=== PATIENT | male | born 1980 | race Caucasian/White ===

== ENCOUNTER 2019-08-12 18:36 | Emergency (ER) | payer OTHER ==
[~2019-08-12] VITALS: Ht 165.1 cm; Wt 85.5 kg
[2019-08-12] MEDS ORDERED: AMPICILLIN SOD/SULBACTAM SOD 3 GM in D5W MINI-BAG PLUS 100 ML IV ONE (19:15)
[2019-08-12] MEDS ORDERED: NS 1,000 ML IV ONE (19:15)
[2019-08-12 19:45] LABS: BASO % 0.1 % (0.0-1.0); EOS # 0.1 10^3/uL (0.0-0.5); EOS % 0.6 % (0.0-3.0); HEMATOCRIT 46.5 % (42.0-52.0); HEMOGLOBIN 15.8 g/dl (13.5-17.5); LYMPH % 12.3 % (24.0-44.0); MEAN CORPUSCULAR HEMOGLOBIN 30.7 pg (27.0-33.0); MEAN CORPUSCULAR VOLUME 90.5 fl (80.0-96.0); MONO # 1.2 10^3/uL (0.0-0.8); MONO % 7.7 % (0.0-5.0); NEUTROPHILS # 12.5 10^3/uL (1.5-8.5); NEUTROPHILS % 78.9 % (36.0-66.0); PLATELET COUNT, AUTOMATED 269 10^3/uL (150-450); RED BLOOD COUNT 5.14 10^6/uL (4.30-6.10); WHITE BLOOD COUNT 15.8 10^3/uL (4.0-10.0)
[2019-08-12] MEDS ORDERED: ISOVUE-370 76% 100ML VIAL As Ordered ONE (19:57)
--- NOTE | 2019-08-12 20:38 | REPVR ---
PROCEDURE INFORMATION: Exam: CT Neck With Contrast Exam date and time: 08/12/2019 8:21 PM Age: 38 years old Clinical indication: Other: Right lower dental abscess with neck extension TECHNIQUE: Imaging protocol: Computed tomography images of the neck with intravenous contrast. Radiation optimization: All CT scans at this facility use at least one of these dose optimization techniques: automated exposure control; mA and/or kV adjustment per patient size (includes targeted exams where dose is matched to clinical indication); or iterative reconstruction. Contrast material: ISOVUE 370; Contrast volume: 75 ml; Contrast route: INTRAVENOUS (IV); COMPARISON: No relevant prior studies available. FINDINGS: Sinuses: Mild paranasal sinus disease. Nasopharynx: Unremarkable. Dental: There is periapical lucency involving the right mandibular premolar teeth and 1st molar tooth. Oropharynx: Unremarkable. No significant tonsillar enlargement. Hypopharynx: Unremarkable. Larynx: Unremarkable. Normal epiglottis. Retropharyngeal space: Unremarkable. Submandibular/Parotid glands: Normal. Glands are normal in size. Thyroid: Normal. No enlarged or calcified nodules. Lymph nodes: Unremarkable. No lymphadenopathy. Trachea: Visualized trachea is unremarkable. Lungs: Unremarkable as visualized. Bones/joints: Unremarkable. No acute fracture. Soft tissues: There are right facial soft tissue inflammatory changes extending along the right anterolateral neck. Hypodensity along the buccal cortex of the right mandibular body measures 1 cm by 0.4 centimetres by 0.5 centimetres. IMPRESSION: 1. Inflammatory changes involving the right facial and anterolateral neck soft tissues compatible with cellulitis. 2. Abscess along the buccal cortex of the right mandibular body measures up to 1 cm. 3. Periapical lucency involving the right mandibular premolar teeth and 1st molar tooth representing source of infection. Electronically signed by: Tony Vazquez On 08/12/2019 20:37:57 PM
[2019-08-12] MEDS ORDERED: dexameTHASONE 20MG/5ML VIAL (J1100 PER 1MG) IV ONE (21:00)
[2019-08-12] MEDS ORDERED: AUGMENTIN 875 MG TAB PO ONE (21:00)
[2019-08-12] MEDS ORDERED: AUGM875T28 PO (21:01)
[2019-08-12 21:15] VITALS: BP 137/82
== END 2019-08-12 21:17 | disposition home or self-care (01) ==
LOC: M ED 18:36
DX: K04.7 Periapical abscess without sinus (principal); K02.9 Dental caries, unspecified; L03.211 Cellulitis of face; F17.218 Nicotine dependence, cigarettes, with other nicotine-induced disorders
CPT/HCPCS: 70491; 80047; 85025; 86140; 87040; 96361; 96365; 96375; 99283; J1100; Q9967

== ENCOUNTER 2020-08-18 23:45 | Emergency (ER) | payer OTHER ==
[~2020-08-18] VITALS: Ht 172.7 cm; Wt 84.1 kg
[~2020-08-18 23:45] MED LIST: AUGM875T28 PO
[2020-08-18 23:46] VITALS: BP 123/77
== END 2020-08-19 04:38 | disposition home or self-care (01) ==
LOC: M ED 23:45
DX: M25.462 Effusion, left knee (principal); F17.210 Nicotine dependence, cigarettes, uncomplicated; F12.20 Cannabis dependence, uncomplicated

== ENCOUNTER → 2020-08-22 | Outpatient (CLI) | payer OTHER ==
--- NOTE | 2020-08-22 09:55 | REP ---
INDICATION: PATELLOFEMORAL DISORDERS, LEFT KNEE. COMPARISON: None. TECHNIQUE: Standing bilateral AP view of the knees and three views of the left knee FINDINGS: Standing bilateral AP views of the knee show the compartments to be symmetric and well maintained. Three views left knee show the compartments to be symmetric and well maintained. There is no acute fracture, dislocation, or subluxation. IMPRESSION: Within normal limits <Electronically signed by Paul Queen > 08/22/20 [id number]
== END ==
LOC: M SOG 09:14
PROVIDERS: ATTEND Orthopaedic Surgery Sports Medicine
DX: M22.2X2 Patellofemoral disorders, left knee (principal)

== ENCOUNTER 2022-11-21 21:05 | Emergency (ER) | payer OTHER ==
[~2022-11-21] VITALS: Ht 165.1 cm; Wt 81.8 kg
[2022-11-21] MEDS ORDERED: BOOSTRIX VACCINE (TETANUS/DIPHTH/ACEL. PERTUSSIS) 0.5ML SYR IM.IMMUN ONE (21:25)
[2022-11-21 21:38] LABS: BASO % 0.2 % (0.0-1.0); EOS # 0.2 10^3/uL (0.0-0.5); EOS % 1.2 % (0.0-3.0); HEMATOCRIT 41.7 % (42.0-52.0); LYMPH % 16.2 % (24.0-44.0); MEAN CORPUSCULAR HEMOGLOBIN 31.1 pg (27.0-33.0); MEAN CORPUSCULAR HGB CONC 33.6 g/dl (32.0-36.5); MEAN CORPUSCULAR VOLUME 92.7 fl (80.0-96.0); MONO # 0.7 10^3/uL (0.0-0.8); MONO % 5.4 % (2.0-8.0); NEUTROPHILS # 9.5 10^3/uL (1.5-8.5); NEUTROPHILS % 76.4 % (36.0-66.0); PLATELET COUNT, AUTOMATED 404 10^3/uL (150-450); WHITE BLOOD COUNT 12.4 10^3/uL (4.0-10.0)
[2022-11-21] MEDS ORDERED: ISOVUE-370 76% 100ML VIAL As Ordered ONE (21:41)
[2022-11-21 21:55] LABS: INR 1.1; PARTIAL THROMBOPLASTIN TIME 31.1 SECONDS (24.8-34.2); PROTHROMBIN TIME 13.9 SECONDS (12.5-14.5)
[2022-11-21 21:59] LABS: ETHYL ALCOHOL (ETHANOL) 0.004 % (0.000-0.010); LIPASE 27 U/L (12-53)
[2022-11-21 22:01] LABS: ALBUMIN 2.9 G/DL (3.2-5.2); ALKALINE PHOSPHATASE 105 U/L (46-116); ALT/SGPT 12 U/L (7.0-40); AST/SGOT 14 U/L (<34); BILIRUBIN,DIRECT < 0.1 MG/DL (<0.4); BILIRUBIN,TOTAL 0.2 MG/DL (0.3-1.2); BLOOD UREA NITROGEN 8 MG/DL (9-23); CALCIUM LEVEL 8.6 MG/DL (8.5-10.1); CARBON DIOXIDE LEVEL 28 MMOL/L (20-31); CHLORIDE LEVEL 108 MMOL/L (98-107); CPK CREATINE PHOSPHOKINASE 41 U/L (46-171); CREATININE FOR GFR 0.93 MG/DL (0.70-1.30); GLOMERULAR FILTRATION RATE > 60.0 (>60); GLUCOSE, FASTING 150 MG/DL (60-100); POTASSIUM SERUM 3.7 MMOL/L (3.5-5.1); SODIUM LEVEL 142 MMOL/L (136-145); TOTAL PROTEIN 6.3 G/DL (5.7-8.2)
[2022-11-21 22:04] LABS: CK-MB VALUE MASS < 1.0 NG/ML (<3.6); MB/CK RELATIVE INDEX 2.43 (< OR =4)
[2022-11-21 22:45] VITALS: BP 132/73
[2022-11-21 22:50] VITALS: TEMP 98.8
[2022-11-21 23:06] LABS: AMPHETAMINES LEVEL URINE NEGATIVE (NEGATIVE); BARBITURATES URINE NEGATIVE (NEGATIVE); BENZODIAZEPINES URINE NEGATIVE (NEGATIVE); METHADONE URINE NEGATIVE (NEGATIVE); PHENCYCLIDINE URINE NEGATIVE (NEGATIVE)
[2022-11-21 23:07] LABS: CANNABINOIDS URINE NEGATIVE (NEGATIVE); OPIATES URINE NEGATIVE (NEGATIVE)
[2022-11-21 23:08] LABS: COCAINE METABOLITE URINE POSITIVE (NEGATIVE)
[2022-11-21 23:20] VITALS: O2SAT 96
[2022-11-21 23:22] LABS: CK-MB VALUE MASS < 1.0 NG/ML (<3.6)
[2022-11-21 23:23] LABS: CPK CREATINE PHOSPHOKINASE 25 U/L (46-171)
== END 2022-11-21 23:54 | disposition home or self-care (01) ==
LOC: M ED 21:05 → EDBD 21:05 → EDSEX 21:05 → M ED 23:54
DX: S00.83XA Contusion of other part of head, initial encounter (principal); V48.5XXA Car driver injured in noncollision transport accident in traffic accident, initial encounter; Y92.410 Unspecified street and highway as the place of occurrence of the external cause; Y93.89 Activity, other specified; Y99.8 Other external cause status; R55 Syncope and collapse; F14.10 Cocaine abuse, uncomplicated; G51.0 Bell's palsy; F17.200 Nicotine dependence, unspecified, uncomplicated
CPT/HCPCS: 70450; 70486; 71260; 72125; 72128; 72131; 74177; 80047; 80048; 80076; 80307; 81001; 82077; 82550; 82553; 83690; 84484; 85025; 85610; 85730; 90471; 90715; 93005; 93041; 94760; 99285; Q9967